=== PATIENT | male | born 1995 | race Two or more races ===

== ENCOUNTER 2021-02-09 01:52 | Emergency (ER) | payer BC, OTHER ==
[2021-02-09 01:54] VITALS: BP 122/83
[2021-02-09] MEDS ORDERED: IBUPROFEN 600 MG TABLET ONE ×2 (02:27→03:37)
[2021-02-09] MEDS ORDERED: HYDROcodone/APAP 5/325 TABLET ONE ×2 (02:27→03:37)
--- NOTE | 2021-02-09 02:28 | NUR ---
PT NOT IN ROOM, PRESUMABLY IN RAD.
[2021-02-09] MEDS ORDERED: PLEASE ENTER ALLERGIES MC SCH (02:30)
[2021-02-09] MEDS: HYDROcodone/APAP 5/325 TABLET PO ONE ×2 (02:35→03:40)
[2021-02-09] MEDS: IBUPROFEN 600 MG TABLET PO ONE ×2 (02:35→03:40)
--- NOTE | 2021-02-09 02:46 | NUR ---
PT DECLINES MEDICATION AT THIS TIME. PROVIDED W/ ICEPACK FOR COMFORT.
--- NOTE | 2021-02-09 03:13 | NUR ---
PT IN EMOTIONAL DISTRESS, STATES THAT HE WALKED HIMSELF TO THE BR BECAUSE HE COULD NOT HOLD URINE AND THAT HE IS IN SEVERE PAIN. PT OFFERED MEDS AGAIN BUT PT WISHES TO WAIT FOR MORE DEFINITIVE POC. PT UPDATED THAT WE ARE WAITING FOR XR READ. RESP EVEN AND UNLABORED, NADN.
--- NOTE | 2021-02-09 03:20 | NUR ---
AT BEDSIDE FOR RECHECK.
--- NOTE | 2021-02-09 03:30 | NUR ---
DANIKA GARCIA AT BEDSIDE FOR KNEE IMMBOLIZER AND CRUTCHES.
--- NOTE | 2021-02-09 03:30 | NUR ---
Raquel flannery in [facility] - 02/09/21 at 0333 by DONG Patient given discharge instructions and they have confirmed that they understand the instructions. Patient ambulatory with steady gait.
--- NOTE | 2021-02-09 03:42 | NUR ---
WENT INTO ROOM TO DC PT, PT NOW REQUESTING PREVIOUSLY ORDERED PAIN MEDS. PT MEDICATED PER EMAR.
--- NOTE | 2021-02-09 03:43 | NUR ---
PT AGREED TO STAY IN ED FOR 10 MINUTES FOR MONITORING AFTER MEDS. 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 PT STATES HE DOESN'T KNOW ANY NUMBERS.OFFERED TO CAN BRING PHONE UP TO THE NURSES STATION TO CHARGE. PT AGREED. CELL PHONE TAKEN TO [facility] [employer] TO CHARGE WHILE MONITORING PT. Addendum: 02/09/21 at 0407 by DONG PT AGREED TO STAY IN ED FOR 10 MINUTES FOR MONITORING AFTER MEDS. 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 PT STATES HE DOESN'T KNOW ANY NUMBERS. OFFERED TO BRING PHONE UP TO THE NURSES STATION TO CHARGE. PT AGREED. CELL PHONE TAKEN TO [facility] [employer] TO CHARGE WHILE MONITORING PT.
--- NOTE | 2021-02-09 03:53 | NUR ---
PT RESTING ON GURNEY, AWAKE AND ALERT. RESP EVEN AND UNLABORED, NADN.
--- NOTE | 2021-02-09 04:05 | NUR ---
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 PHONE RETURNED TO PT. PT USED PHONE TO CALL [facility], THIS RN RECOMMENDED HE ADD "ED ENTRANCE" IN COMMENTS. THIS RN SHOWED PT TO DC DESK. AMBULATORY W/ A STEADY GAIT, RESP EVEN AND UNLABORED, NADN.
== END 2021-02-09 04:10 | disposition home or self-care (01) ==
LOC: ED 04:07
DX: S83.015A Lateral dislocation of left patella, initial encounter (principal); S76.112A Strain of left quadriceps muscle, fascia and tendon, initial encounter; M25.462 Effusion, left knee; X50.1XXA Overexertion from prolonged static or awkward postures, initial encounter; Y93.89 Activity, other specified; Y92.89 Other specified places as the place of occurrence of the external cause; Y99.8 Other external cause status
CPT/HCPCS: 29505; 99283